=== PATIENT | male | born 1960 | race Caucasian/White ===

== ENCOUNTER 2017-09-24 16:40 | Emergency (ER) | payer BC ==
[~2017-09-24] VITALS: Ht 167.6 cm; Wt 77.7 kg
[~2017-09-24 16:40] MED LIST: BUSP5TAB59 PO; CARB200T PO; CLON0.5T3 PO; GABA800T2 PO; METO25TA3 PO; MIRT45TA PO
[2017-09-24 16:46] VITALS: TEMP 36.6; Ht 167.6 cm; Wt 77.7 kg
[2017-09-24] MEDS ORDERED: LACTATED RINGER'S 1000ML 1,000 ML IV STA (17:11)
[2017-09-24] MEDS ORDERED: METOCLOPRAMIDE HCL INJ 5 MG/ML 2 ML VIAL IV STA (17:19)
--- NOTE | 2017-09-24 17:31 | EMERGENCY ROOM VISIT NOTE ---
History Report prepared by Mariposa: Alejandra Lara Under the Supervision of: Dr. Adriano Mcmahan M.D. First contact with patient: 17:09 Chief Complaint: DIZZY Stated Complaint: DIZZYNESS,TREMBLING, VISUAL PROBLEMS,MAX Nursing Triage Summary: Intermittent dizziness for the past few days. History of Present Illness The patient is a 57 year old male who presents to the Emergency Room with complaints of intermittent dizziness beginning yesterday. The patient states that he has been having lightheadedness and headaches that began yesterday after having one cough suddenly. He reports that he has felt like he was going to have an episode of syncope 2 times since his symptoms began. He notes that this has happened to him before but never this severe. The patient complains of tremors. He denies any fever, chills, cough, nausea, vomiting, abdominal pain, new congestion, diarrhea, urinary symptoms. He reports a history of trigeminal neuralgia. The patient's notes that his pupils were strange this afternoon. He notes that he was shopping last night and ate ramen noodles before he went out and again today. Source of History: patient Onset: yesterday Position: other (global) Quality: other (dizziness) Timing: constant Associated Symptoms: + headache, No fevers, No chills, No nausea, No vomiting, No abdominal pain, No diarrhea, No urinary symptoms Note: The patient complains of tremor. Review of Systems See HPI for pertinent positives and negatives. A total of ten systems were reviewed and were otherwise negative. Past Medical & Surgical Medical Problems: (1) Depression (2) Neuralgia Family History No pertinent family history stated. Social History Smoking Status: Never Smoker Marital Status: Housing Status: lives with family Occupation Status: employed Current/Historical Medications Scheduled Atorvastatin (Lipitor), 20 MG PO DAILY Buspirone Hcl (Buspirone Hcl), 5 MG PO BID Carbamazepine (Tegretol), 400 MG PO UD Cholecalciferol (Vitamin D3), 1 TAB PO WK Clonazepam (Klonopin), 0.5 MG PO HS Gabapentin (Neurontin), 1,600 MG PO UD Gabapentin (Neurontin), 1,200 MG PO QAM Lisinopril (Zestril), 10 MG PO DAILY Metoprolol Succ (Toprol Xl) (Toprol-Xl), 50 MG PO DAILY Mirtazapine (Remeron), 45 MG PO HS Scheduled PRN Dicyclomine Hcl (Dicyclomine Hcl), 1 CAP PO TID PRN for ABD PAIN Fluticasone Propionate (Nasal) (Flonase Allergy Relief), 1 SPRAY CAROLYNN BID PRN for ALLERGIC REACTION Allergies Coded Allergies: No Known Allergies (Verified , 09/24/17) Physical Exam Vital Signs Date Time Temp Pulse Resp B/P (MAP) Pulse Ox O2 Delivery O2 Flow Rate FiO2 09/24/17 22:42 68 18 125/76 98 09/24/17 20:26 65 19 135/82 96 Room Air 09/24/17 18:46 68 18 119/75 95 Room Air 09/24/17 18:07 70 09/24/17 16:46 36.6 74 18 134/81 95 Room Air Physical Exam GENERAL: Awake, alert, well-appearing, in no distress HENT: Normocephalic, atraumatic. Dry mucous membranes. EYES: Normal conjunctiva. Sclera non-icteric. NECK: Supple. No nuchal rigidity. FROM. No JVD. RESPIRATORY: Clear to auscultation. CARDIAC: Regular rate, normal rhythm. Extremities warm and well perfused. Pulses equal. ABDOMEN: Soft, non-distended. No tenderness to palpation. No rebound or guarding. No masses. RECTAL: Deferred. MUSCULOSKELETAL: Chest examination reveals no tenderness. The back is symmetrical on inspection without obvious abnormality. There is no CVA tenderness to palpation. No joint edema. LOWER EXTREMITIES: Calves are equal size bilaterally and non-tender. No edema. No discoloration. NEURO: Normal sensorium. No sensory or motor deficits noted. Normal cerebellar function with [id number], alternating palms, [id number]. SKIN: No rash or jaundice noted. Medical Decision & Procedures ER Provider Diagnostic Interpretation: Radiology results as stated below per my review and radiologist interpretation: HEAD CT NONCONTRAST TECHNIQUE: Multiaxial CT images of the head were performed without the use of intravenous contrast. Automated exposure control was utilized for this study. A dose lowering technique was utilized adhering to the principles of ALARA. Comparison: None. Findings: The paranasal sinuses and mastoid air cells are clear. The calvarium and skull base are intact. The ventricles and sulci are within normal limits. There is no mass, hematoma, midline shift, or acute infarct. Impression: No acute intracranial abnormality. Electronically signed by: Scott Zamora M.D. 09/24/2017 6:46 PM Dictated Date/Time: 09/24/2017 6:39 PM CHEST ONE VIEW PORTABLE FINDINGS: The lungs are clear. Cardiac silhouette is normal in size. No pleural effusions. No pneumothorax. IMPRESSION: No acute process. Electronically signed by: Scott Zmaora M.D. 09/24/2017 5:46 PM Dictated Date/Time: 09/24/2017 5:44 PM Laboratory Results 09/24/17 18:10 Red Blood Count 4.40, Mean Corpuscular Volume 92.3, Mean Corpuscular Hemoglobin 32.3, Mean Corpuscular Hemoglobin Concent 35.0, Mean Platelet Volume 9.0, Neutrophils (%) (Auto) 60.5, Lymphocytes (%) (Auto) 30.6, Monocytes (%) (Auto) 7.1, Eosinophils (%) (Auto) 1.3, Basophils (%) (Auto) 0.3, Neutrophils # (Auto) 3.73, Lymphocytes # (Auto) 1.89, Monocytes # (Auto) 0.44, Eosinophils # (Auto) 0.08, Basophils # (Auto) 0.02 09/24/17 18:10 Test 09/24/17 00:00 09/24/17 18:10 Urine Color YELLOW Urine Appearance CLEAR (CLEAR) Urine pH 5.5 (4.5-7.5) Urine Specific [place] 1.030 (1.000-1.030) Urine Protein NEG (NEG) Urine Glucose (UA) NEG (NEG) Urine Ketones NEG (NEG) Urine Occult Blood NEG (NEG) Urine Nitrite NEG (NEG) Urine Bilirubin NEG (NEG) Urine Urobilinogen NEG (NEG) Urine Leukocyte Esterase NEG (NEG) White Blood Count 6.17 K/uL (4.8-10.8) Red Blood Count 4.40 M/uL (4.7-6.1) Hemoglobin 14.2 g/dL (14.0-18.0) Hematocrit 40.6 % (42-52) Mean Corpuscular Volume 92.3 fL (80-100) Mean Corpuscular Hemoglobin 32.3 pg (25-34) Mean Corpuscular Hemoglobin Concent 35.0 g/dl (32-36) Platelet Count 219 K/uL (130-400) Mean Platelet Volume 9.0 fL (7.4-10.4) Neutrophils (%) (Auto) 60.5 % Lymphocytes (%) (Auto) 30.6 % Monocytes (%) (Auto) 7.1 % Eosinophils (%) (Auto) 1.3 % Basophils (%) (Auto) 0.3 % Neutrophils # (Auto) 3.73 K/uL (1.4-6.5) Lymphocytes # (Auto) 1.89 K/uL (1.2-3.4) Monocytes # (Auto) 0.44 K/uL (0.11-0.59) Eosinophils # (Auto) 0.08 K/uL (0-0.5) Basophils # (Auto) 0.02 K/uL (0-0.2) RDW Standard Deviation 42.3 fL (36.4-46.3) RDW Coefficient of Variation 12.5 % (11.5-14.5) Immature Granulocyte % (Auto) 0.2 % Immature Granulocyte # (Auto) 0.01 K/uL (0.00-0.02) Anion Gap 5.0 mmol/L (3-11) Est Creatinine Clear Calc Drug Dose 101.2 ml/min Estimated GFR () 115.3 Estimated GFR (Non- 99.5 BUN/Creatinine Ratio 15.0 (10-20) Calcium Level 8.5 mg/dl (8.5-10.1) Total Bilirubin 0.1 mg/dl (0.2-1) Direct Bilirubin < 0.1 mg/dl (0-0.2) Aspartate Amino Transf (AST/SGOT) 16 U/L (15-37) Alanine Aminotransferase (ALT/SGPT) 25 U/L (12-78) Alkaline Phosphatase 71 U/L (45-117) Troponin I < 0.015 ng/ml (0-0.045) Total Protein 6.4 gm/dl (6.4-8.2) Albumin 3.6 gm/dl (3.4-5.0) Lipase 260 U/L (73-393) Carbamazepine (Tegretol) Level 17.8 mcg/ml (4-12) Laboratory results reviewed by me Medications Administered Medications (Trade) Dose Ordered Sig/Jorge Luis Route Start Time Stop Time Status Last Admin Dose Admin Lactated Ringer's 1,000 ml @ 999 mls/hr Q1H1M STAT IV 09/24/17 17:11 09/24/17 18:11 DC 09/24/17 18:14 999 MLS/HR ECG Indication: other (dizziness) Rate (beats per minute): 69 Rhythm: normal sinus Findings: no acute ischemic change, other (normal axis) ED Course 1708: The patient was evaluated in room B4B. A complete history and physical exam was performed. 1710: Lactated Ringer's 1000ml @ 999mls/hr IV. 1718: Reglan Inj 10mg IV. 1916: I reevaluated and updated the patient. 1941: I discussed the patient with Dr. Ivanna LUJAN and he will evaluate the patient for further treatment. 1950: Upon reexamination, the patient was doing well. I discussed the test results and treatment plan with him. The patient will be evaluated for further management. Medical Decision I reviewed the patient's past medical history, medications, and the nursing notes as described above. The patient's presentation and history were concerning for tension headache, viral syndrome, gastritis, dehydration, electrolyte abnormalities, ACS, pneumonia, bronchitis. The patient is a 57-year-old gentleman with a past medical history of trigeminal neuralgia on Tegretol and gabapentin as well as a question of an arrhythmia on metoprolol who presents to emergency department with persistent episodes of lightheadedness and near syncope per history of present illness. On arrival the patient is in no acute distress, afebrile with stable vital signs. His initial EKG shows A. fib with rate of 57 otherwise no signs of acute ischemia. Patient was found to have a supratherapeutic Tegretol level to 17.8, which likely is contributing to the patient's symptoms. Labs otherwise, unremarkable including WBC, troponin, and Cr within normal limits. Given the patient's supratherapeutic Tegretol level with prolonged half-life of days in the setting of chronic use as well as question of new A. fib admission is appropriate. Of note patient's CHADSVASC is 0 and thus no indication for AC at this time. Patient and both preferring admission at this time. Case was d/ w TAI Barakat hospitalist, who will admit the patient for further management. Medication Reconcilliation Current Medication List: was personally reviewed by me Blood Pressure Screening Patient's blood pressure: Elevated blood pressure Blood pressure disposition: Did not require urgent referral Consults Time Called: 1937 Consulting Physician: Dr. Ivanna LUJAN Returned Call: 1941 I discussed the patient with Dr. Ivanna LUJAN and he will evaluate the patient for further treatment. Impression Primary Impression: Near syncope Additional Impression: Tegretol toxicity Scribe Attestation The scribe's documentation has been prepared under my direction and personally reviewed by me in its entirety. I confirm that the note above accurately reflects all work, treatment, procedures, and medical decision making performed by me. Departure Information Dispostion Being Evaluated By Hospitalist Referrals Cody Black M.D. (PCP) Patient Instructions My [facility] Problem Qualifiers
--- NOTE | 2017-09-24 17:47 | DIAGNOSTIC IMAGING REPORT ---
CHEST ONE VIEW PORTABLE HISTORY: Generalized abdominal pain. COMPARISON: Chest 06/04/2008. FINDINGS: The lungs are clear. Cardiac silhouette is normal in size. No pleural effusions. No pneumothorax. IMPRESSION: No acute process. Electronically signed by: Scott Zamora M.D. 09/24/2017 5:46 PM Dictated Date/Time: 09/24/2017 5:44 PM
[2017-09-24 18:19] LABS: BASO % 0.3 %; BASO ABS # 0.02 K/uL (0-0.2); COMPLETE YES; EOS % 1.3 %; HEMATOCRIT 40.6 % (42-52); IG% 0.2 %; LYMPH % 30.6 %; LYMPH ABS # 1.89 K/uL (1.2-3.4); MEAN CELL VOLUME 92.3 fL (80-100); MEAN CORPUSCULAR HEMOGLOBIN 32.3 pg (25-34); MONO % 7.1 %; NEUT % 60.5 %; PLATELET COUNT 219 K/uL (130-400); WHITE BLOOD COUNT 6.17 K/uL (4.8-10.8)
[2017-09-24 18:23] LABS: URINE APPEARANCE CLEAR (CLEAR); URINE BILIRUBIN NEG (NEG); URINE COLOR YELLOW; URINE NITRITE NEG (NEG); URINE PH 5.5 (4.5-7.5); UROBILINOGEN NEG (NEG); ZZUR CULT IF INDIC CLEAN CATCH NO
[2017-09-24 18:24] LABS: MANUAL MICROSCOPIC REQUIRED? NO; REVIEW REQ? NO
[2017-09-24 18:42] LABS: ALT/SGPT 25 U/L (12-78); BLOOD UREA NITROGEN 12 mg/dl (7-18); CALCIUM 8.5 mg/dl (8.5-10.1); CARBON DIOXIDE 30 mmol/L (21-32); CHLORIDE 99 mmol/L (98-107); CREATININE 0.78 mg/dl (0.60-1.40); GLUCOSE 113 mg/dl (70-99); POTASSIUM 3.8 mmol/L (3.5-5.1); SODIUM 134 mmol/L (136-145)
[2017-09-24 18:47] LABS: ALKALINE PHOSPHATASE 71 U/L (45-117); AST/SGOT 16 U/L (15-37)
--- NOTE | 2017-09-24 18:47 | DIAGNOSTIC IMAGING REPORT ---
HEAD CT NONCONTRAST CT DOSE: 537.48 mGy.cm HISTORY: Headache, dizziness TECHNIQUE: Multiaxial CT images of the head were performed without the use of intravenous contrast. Automated exposure control was utilized for this study. A dose lowering technique was utilized adhering to the principles of ALARA. Comparison: None. Findings: The paranasal sinuses and mastoid air cells are clear. The calvarium and skull base are intact. The ventricles and sulci are within normal limits. There is no mass, hematoma, midline shift, or acute infarct. Impression: No acute intracranial abnormality. Electronically signed by: Scott Zamora M.D. 09/24/2017 6:46 PM Dictated Date/Time: 09/24/2017 6:39 PM
[2017-09-24] MEDS ORDERED: LISI-461 PO (20:00)
[2017-09-24] MEDS ORDERED: GABA1CAP5 PO (20:00)
[2017-09-24] MEDS ORDERED: CHOL20007 PO (20:00)
[2017-09-24] MEDS ORDERED: ATOR-22 PO (20:00)
[2017-09-24] MEDS ORDERED: METO50TA7 PO (20:00)
[2017-09-24] MEDS ORDERED: FLUT0.15 NAE (20:00)
[2017-09-24] MEDS ORDERED: DICY10CA12 PO (20:00)
[2017-09-24] MEDS ORDERED: NON-FORMULARY MEDICATION (Cholecalciferol (Vitamin D3) 1 TAB) PO SCH (21:15)
[2017-09-24] MEDS ORDERED: DICYCLOMINE HCL 10 MG CAP PO PRN (21:15)
[2017-09-24] MEDS ORDERED: FLUTICASONE PROPIONATE NA SPR 16 GM BTL NAE PRN (21:15)
--- NOTE | 2017-09-24 21:31 | Medical Consult ---
Consultation Date of Consultation: Sep 24, 2017. Attending Physician: History of Present Illness 57 y/o M Hx depression, anxiety, trigeminal neuralgias, possible paroxysmal AF. Pt states he has felt generally dizzy over the past 2 days and had 2 near syncopal episodes as well. He did not lose consciousness. These episodes occurred while he was eating and again when sitting on his couch. He denies any CP, SOB or discernible palpitations. He denies Nausea, vomiting, dysuria, fevers or generalized weakness. Initial labs are notable for an elevated Tegretol level although not within the critically toxic range. He exhibits a normal sinus rhythm and a normal EKG at the time of evaluation. 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 Smoking Status: Never Smoker Marital Status: Housing Status: lives with family Occupation Status: employed Allergies Coded Allergies: No Known Allergies (Verified , 09/24/17) Review of Systems Constitutional: No fever, No chills, No sweats ENT: No hearing loss, No unusual epistaxis, No nasal symptoms Respiratory: No cough, No sputum, No wheezing Cardiovascular: No chest pain, No orthopnea, No PND Abdomen: No pain, No nausea, No vomiting Musculoskeletal: No joint pain Genitourinary - Male: No hematuria, No dysuria, No urinary frequency, No urinary urgency Neurologic: + problem reported (dizzy spells as above), No memory loss, No paralysis, No weakness Psychiatric: No depression symptoms Endocrine: No fatigue Hematologic / Lymphatic: No abnormal bleeding/bruising Integumentary: No rash Allergic / Immunologic: No environmental allergies Physical Exam Date Time Temp Pulse Resp B/P (MAP) Pulse Ox O2 Delivery O2 Flow Rate FiO2 09/24/17 20:26 65 19 135/82 96 Room Air 09/24/17 18:46 68 18 119/75 95 Room Air 09/24/17 18:07 70 09/24/17 16:46 36.6 74 18 134/81 95 Room Air General Appearance: WD/WN, no apparent distress, + pertinent finding (Plesant middle-aged male in no distress) Head: normocephalic Eyes: normal inspection ENT: normal ENT inspection, hearing grossly normal, TMs normal, pharynx normal Neck: supple, no JVD Respiratory/Chest: chest non-tender, lungs clear, normal breath sounds, no respiratory distress, no accessory muscle use Cardiovascular: regular rate, rhythm, no edema, no gallop, no JVD, no murmur, normal peripheral pulses Abdomen/GI: normal bowel sounds, non tender, soft Back: normal inspection, no CVA tenderness, no muscle spasm, normal range of motion Extremities/Musculoskelatal: normal inspection, no calf tenderness, normal capillary refill, no pedal edema, normal range of motion Neurologic/Psych: bagman/woman II-XII nml as tested, no motor/sensory deficits, alert, normal mood/affect, normal reflexes, oriented x 3 Skin: normal color, warm/dry, no rash Laboratory Results Last 24 Hours Test 09/24/17 00:00 09/24/17 18:10 Urine Color YELLOW Urine Appearance CLEAR Urine pH 5.5 Urine Specific [place] 1.030 Urine Protein NEG Urine Glucose (UA) NEG Urine Ketones NEG Urine Occult Blood NEG Urine Nitrite NEG Urine Bilirubin NEG Urine Urobilinogen NEG Urine Leukocyte Esterase NEG White Blood Count 6.17 K/uL Red Blood Count 4.40 M/uL Hemoglobin 14.2 g/dL Hematocrit 40.6 % Mean Corpuscular Volume 92.3 fL Mean Corpuscular Hemoglobin 32.3 pg Mean Corpuscular Hemoglobin Concent 35.0 g/dl Platelet Count 219 K/uL Mean Platelet Volume 9.0 fL Neutrophils (%) (Auto) 60.5 % Lymphocytes (%) (Auto) 30.6 % Monocytes (%) (Auto) 7.1 % Eosinophils (%) (Auto) 1.3 % Basophils (%) (Auto) 0.3 % Neutrophils # (Auto) 3.73 K/uL Lymphocytes # (Auto) 1.89 K/uL Monocytes # (Auto) 0.44 K/uL Eosinophils # (Auto) 0.08 K/uL Basophils # (Auto) 0.02 K/uL RDW Standard Deviation 42.3 fL RDW Coefficient of Variation 12.5 % Immature Granulocyte % (Auto) 0.2 % Immature Granulocyte # (Auto) 0.01 K/uL Sodium Level 134 mmol/L Potassium Level 3.8 mmol/L Chloride Level 99 mmol/L Carbon Dioxide Level 30 mmol/L Anion Gap 5.0 mmol/L Blood Urea Nitrogen 12 mg/dl Creatinine 0.78 mg/dl Est Creatinine Clear Calc Drug Dose 101.2 ml/min Estimated GFR () 115.3 Estimated GFR (Non- 99.5 BUN/Creatinine Ratio 15.0 Random Glucose 113 mg/dl Calcium Level 8.5 mg/dl Total Bilirubin 0.1 mg/dl Direct Bilirubin < 0.1 mg/dl Aspartate Amino Transf (AST/SGOT) 16 U/L Alanine Aminotransferase (ALT/SGPT) 25 U/L Alkaline Phosphatase 71 U/L Troponin I < 0.015 ng/ml Total Protein 6.4 gm/dl Albumin 3.6 gm/dl Lipase 260 U/L Carbamazepine (Tegretol) Level 17.8 mcg/ml Assessment & Plan 57 y/o M Hx depression, anxiety, trigeminal neuralgias, possible paroxysmal AF. Pt states he has felt generally dizzy over the past 2 days and had 2 near syncopal episodes as well. He did not lose consciousness. These episodes occurred while he was eating and again when sitting on his couch. He denies any CP, SOB or discernible palpitations. He denies Nausea, vomiting, dysuria, fevers or generalized weakness. Initial labs are notable for an elevated Tegretol level although not within the critically toxic range. He exhibits a normal sinus rhythm and a normal EKG at the time of evaluation. The pt was evaluated extensively in the ER. He is feeling fairly well after a litre of fluids and was able to circumambulate the ER independently without developing dizziness. A CT head, EKG and additional labs are all within normal limits. He does not wish to remain in the hospital at present. He reports that he lives with his and will be returning home under her supervision if discharged. We have advised based on the half-life of Tegretol that he resume a lower dose Wednesday and discuss a final dose with his primary MD Wednesday. He is to continue the remainder of his medications as prescribed although with persistence or recurrence of symptoms, he may have to discuss dosages of Remeron and Gil with his MD. The pt has been carefully advised on the above and told to return to the ER with additional episodes, worsening dizziness, palpitations or new unexplained symptoms. A discharge will be completed by the medical team.
[2017-09-24 22:42] VITALS: BP 125/76; PULSE 68; O2SAT 98
[2017-09-25] MEDS ORDERED: METOPROLOL SUCC 50MG EXT REL TAB PO SCH (09:00)
[2017-09-25] MEDS ORDERED: LISINOPRIL 10 MG TAB PO SCH (09:00)
[2017-09-25] MEDS ORDERED: ATORVASTATIN 20 MG TAB PO SCH (09:00)
[2017-09-25] MEDS ORDERED: GABAPENTIN 400 MG CAP PO SCH (09:00)
[2017-09-25] MEDS ORDERED: GABAPENTIN 800 MG TAB PO SCH (21:00)
[2017-09-25] MEDS ORDERED: CLONAZEPAM 0.5 MG TAB PO SCH (21:00)
[2017-09-25] MEDS ORDERED: NON-FORMULARY MEDICATION (Mirtazapine (Remeron) 30 MG) PO SCH (21:00)
== END 2017-09-24 22:44 | disposition home or self-care (01) ==
LOC: C.EDB 16:42
DX: R55 Syncope and collapse (principal); T42.1X1A Poisoning by iminostilbenes, accidental (unintentional), initial encounter; F32.9 Major depressive disorder, single episode, unspecified; G50.0 Trigeminal neuralgia; Z79.899 Other long term (current) drug therapy

== ENCOUNTER 2018-02-18 08:34 | Emergency (ER) | payer BC, OTHER ==
[~2018-02-18] VITALS: Ht 172.7 cm; Wt 77.0 kg
[~2018-02-18 08:34] MED LIST changes: +ATOR-22 PO; +CHOL20007 PO; +DICY10CA12 PO; +FLUT0.15 NAE; +GABA-1220 PO; +LISI-461 PO; -METO25TA3 PO; +METO50TA8 PO
[2018-02-18 08:43] VITALS: TEMP 36.8; Ht 172.7 cm; Wt 77.0 kg
[2018-02-18 08:52] LABS: BASO % 0.2 %; BASO ABS # 0.02 K/uL (0-0.2); EOS % 1.7 %; EOS ABS # 0.17 K/uL (0-0.5); HEMATOCRIT 41.8 % (42-52); HEMOGLOBIN 14.4 g/dL (14.0-18.0); IG# 0.03 K/uL (0.00-0.02); LYMPH % 20.6 %; MEAN CELL VOLUME 90.5 fL (80-100); MEAN CORPUSCULAR HEMOGLOBIN 31.2 pg (25-34); MEAN CORPUSCULAR HGB CONC 34.4 g/dl (32-36); MEAN PLATELET VOLUME 8.8 fL (7.4-10.4); MONO ABS # 0.97 K/uL (0.11-0.59); NEUT % 67.2 %; NEUT ABS # 6.54 K/uL (1.4-6.5); PLATELET COUNT 231 K/uL (130-400); RED CELL DISTRIBUTION WIDTH CV 12.4 % (11.5-14.5); RED CELL DISTRIBUTION WIDTH SD 41.2 fL (36.4-46.3); WHITE BLOOD COUNT 9.73 K/uL (4.8-10.8)
[2018-02-18 09:02] VITALS: O2SAT 96
[2018-02-18 09:05] LABS: INR 0.9 (0.9-1.1)
[2018-02-18 09:06] LABS: ALBUMIN 3.3 gm/dl (3.4-5.0); BLOOD UREA NITROGEN 10 mg/dl (7-18); CALCIUM 8.6 mg/dl (8.5-10.1); CARBON DIOXIDE 28 mmol/L (21-32); GLUCOSE 99 mg/dl (70-99); LIPASE 194 U/L (73-393); SODIUM 138 mmol/L (136-145)
[2018-02-18] MEDS ORDERED: GABA800T PO (09:07)
[2018-02-18] MEDS ORDERED: BUSP30TA2 PO (09:07)
[2018-02-18] MEDS ORDERED: PROB1TAB16 PO (09:07)
[2018-02-18] MEDS ORDERED: CARB200T3 PO (09:07)
--- NOTE | 2018-02-18 09:08 | DIAGNOSTIC IMAGING REPORT ---
CHEST ONE VIEW PORTABLE HISTORY: Atypical CHEST PAIN COMPARISON: Chest 09/24/2017. FINDINGS: The lungs are clear. Cardiac silhouette is normal in size. No pleural effusions. No pneumothorax. IMPRESSION: No acute process. Electronically signed by: Scott Zamora M.D. 02/18/2018 9:07 AM Dictated Date/Time: 02/18/2018 9:04 AM
[2018-02-18 09:11] LABS: ALKALINE PHOSPHATASE 75 U/L (45-117); ALT/SGPT 25 U/L (12-78); AST/SGOT 13 U/L (15-37); TOTAL PROTEIN 6.6 gm/dl (6.4-8.2)
--- NOTE | 2018-02-18 10:13 | EMERGENCY ROOM VISIT NOTE ---
History Report prepared by Mariposa: Augusto Naranjo Under the Supervision of: Dr. Olegario Cornelius M.D. First contact with patient: 08:36 Stated Complaint: CHEST PAIN History of Present Illness The patient is a 57 year old male who presents to the Emergency Room with complaints of now-resolved chest pain that began at 0800, 45 minutes ago. The patient states that his pain was localized to his left chest and did not radiate. The patient describes the pain as a "grabbing" sensation and notes that it was worsened with walking. He estimates that the pain lasted for about 3 minutes before spontaneously resolving. There is no active chest pain. He denies any associated shortness of breath or diaphoresis. The patient's arrived at bedside and noted that he was sick this past week and had a fever of 103.6 on Wednesday, 3 days ago. He also had diarrhea at this time. The patient had an unremarkable halter monitor study in December of 2016. Source of History: patient, spouse/significant other Onset: 45 mintues ago Position: chest (left) Quality: other ("Grabbing") Timing: resolved Modifying Factors (Worsening): other (walking ) Associated Symptoms: No diaphoresis, No SOB Review of Systems See HPI for pertinent positives and negatives. A total of ten systems were reviewed and were otherwise negative. Past Medical & Surgical Medical Problems: (1) Depression (2) Neuralgia Family History Cancer Hypertension Social History Smoking Status: Never Smoker Marital Status: Housing Status: lives with family Occupation Status: employed Current/Historical Medications Scheduled Buspirone Hcl (Buspirone Hcl), 30 MG PO BID Carbamazepine (Tegretol), 400 MG PO BID Carbamazepine (Tegretol), 300 MG PO HS Gabapentin (Neurontin), 1,600 MG PO BID Gabapentin (Neurontin), 1,200 MG PO QAM Lisinopril (Zestril), 10 MG PO DAILY Metoprolol Succ (Toprol Xl) (Toprol-Xl), 50 MG PO DAILY Probiotic Product (Probiotic), 1 TAB PO DAILY Scheduled PRN Clonazepam (Klonopin), 0.5 MG PO HS PRN for Sleep Dicyclomine Hcl (Dicyclomine Hcl), 1 CAP PO TID PRN for ABD PAIN Fluticasone Propionate (Nasal) (Flonase Allergy Relief), 1 SPRAY CAROLYNN BID PRN for ALLERGIC REACTION Allergies Coded Allergies: No Known Allergies (Verified , 09/24/17) Physical Exam Vital Signs Date Time Temp Pulse Resp B/P (MAP) Pulse Ox O2 Delivery O2 Flow Rate FiO2 02/18/18 12:21 72 02/18/18 12:02 79 130/80 95 Room Air 02/18/18 10:33 67 16 119/79 02/18/18 09:20 75 16 111/76 02/18/18 09:02 96 Room Air 02/18/18 08:43 36.8 71 16 134/90 96 Room Air 02/18/18 08:41 72 Physical Exam GENERAL: Awake, alert, well-appearing, NAD HENT: Normocephalic, atraumatic. EYES: Normal conjunctiva. Sclera non-icteric. NECK: Supple. No nuchal rigidity. FROM. RESPIRATORY: CTAB, no rhonchi, wheezing, crackles CARDIAC: RRR, no MRG ABDOMEN: Soft, NTND, BS+ MSK: No chest wall TTP, no LE edema NEURO: GCS 15, CN 2-12 intact, moves all 4s on command SKIN: No rash or jaundice noted. Medical Decision & Procedures ER Provider Diagnostic Interpretation: Radiology results as stated below per my review and radiologist interpretation: CHEST ONE VIEW PORTABLE HISTORY: Atypical CHEST PAIN COMPARISON: Chest 09/24/2017. FINDINGS: The lungs are clear. Cardiac silhouette is normal in size. No pleural effusions. No pneumothorax. IMPRESSION: No acute process. Electronically signed by: Scott Zamora M.D. 02/18/2018 9:07 AM Dictated Date/Time: 02/18/2018 9:04 AM Laboratory Results 02/18/18 08:40 Red Blood Count 4.62, Mean Corpuscular Volume 90.5, Mean Corpuscular Hemoglobin 31.2, Mean Corpuscular Hemoglobin Concent 34.4, Mean Platelet Volume 8.8, Neutrophils (%) (Auto) 67.2, Lymphocytes (%) (Auto) 20.6, Monocytes (%) (Auto) 10.0, Eosinophils (%) (Auto) 1.7, Basophils (%) (Auto) 0.2, Neutrophils # (Auto ) 6.54, Lymphocytes # (Auto) 2.00, Monocytes # (Auto) 0.97, Eosinophils # (Auto ) 0.17, Basophils # (Auto) 0.02 02/18/18 08:40 Test 02/18/18 08:40 02/18/18 12:10 White Blood Count 9.73 K/uL (4.8-10.8) Red Blood Count 4.62 M/uL (4.7-6.1) Hemoglobin 14.4 g/dL (14.0-18.0) Hematocrit 41.8 % (42-52) Mean Corpuscular Volume 90.5 fL (80-100) Mean Corpuscular Hemoglobin 31.2 pg (25-34) Mean Corpuscular Hemoglobin Concent 34.4 g/dl (32-36) Platelet Count 231 K/uL (130-400) Mean Platelet Volume 8.8 fL (7.4-10.4) Neutrophils (%) (Auto) 67.2 % Lymphocytes (%) (Auto) 20.6 % Monocytes (%) (Auto) 10.0 % Eosinophils (%) (Auto) 1.7 % Basophils (%) (Auto) 0.2 % Neutrophils # (Auto) 6.54 K/uL (1.4-6.5) Lymphocytes # (Auto) 2.00 K/uL (1.2-3.4) Monocytes # (Auto) 0.97 K/uL (0.11-0.59) Eosinophils # (Auto) 0.17 K/uL (0-0.5) Basophils # (Auto) 0.02 K/uL (0-0.2) RDW Standard Deviation 41.2 fL (36.4-46.3) RDW Coefficient of Variation 12.4 % (11.5-14.5) Immature Granulocyte % (Auto) 0.3 % Immature Granulocyte # (Auto) 0.03 K/uL (0.00-0.02) Prothrombin Time 9.8 SECONDS (9.0-12.0) Prothromb Time International Ratio 0.9 (0.9-1.1) Activated Partial Thromboplast Time 25.0 SECONDS (21.0-31.0) Partial Thromboplastin Ratio 1.0 Anion Gap 5.0 mmol/L (3-11) Est Creatinine Clear Calc Drug Dose 97.3 ml/min Estimated GFR () 114.1 Estimated GFR (Non- 98.5 BUN/Creatinine Ratio 11.8 (10-20) Calcium Level 8.6 mg/dl (8.5-10.1) Magnesium Level 2.2 mg/dl (1.8-2.4) Total Bilirubin 0.3 mg/dl (0.2-1) Direct Bilirubin < 0.1 mg/dl (0-0.2) Aspartate Amino Transf (AST/SGOT) 13 U/L (15-37) Alanine Aminotransferase (ALT/SGPT) 25 U/L (12-78) Alkaline Phosphatase 75 U/L (45-117) Pro-B-Type Natriuretic Peptide 90 pg/ml (0-900) Total Protein 6.6 gm/dl (6.4-8.2) Albumin 3.3 gm/dl (3.4-5.0) Lipase 194 U/L (73-393) Troponin I < 0.015 ng/ml (0-0.045) Laboratory results reviewed by me ECG Per My Interpretation Indication: chest pain Rate (beats per minute): 72 Rhythm: normal sinus Findings: other (Normal intervals/normal axis, no STS or TWI) ED Course 0841: The patient was evaluated in room A9B. A complete history and physical exam was performed. 0934: I updated the patient at this time. He has not had any recurrence of his pain. We will perform an ambulatory trial and repeat the troponin at 1200. 1222: I checked on the patient he is doing well. 1311: I reevaluated the patient. Discussed results and discharge instructions: He verbalized understanding and agreement. The patient is ready for discharge. Medical Decision Differential diagnosis: Etiologies such as cardiac ischemia, aortic dissection, pulmonary embolism, pneumonia, pneumothorax, musculoskeletal, infections, pericarditis, myocarditis , esophageal rupture, gastrointestinal, as well as others were entertained. Patient was seen and evaluated at the bedside. Patient was complaining of some chest pain. Patient states it started suddenly while he was walking about. 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 Patient denies any nausea, vomiting, diaphoresis. Patient denies any prior history of DVT or PE. Patient does not take aspirin or blood thinning medication. Patient did have blood work completed, EKG, troponin, chest x-ray. Patient's chest x-ray is unremarkable. EKG does not show any ischemic changes or arrhythmia. Troponin is negative. The patient does have a heart score of 3. Less likely ACS. However, the patient may have had some exertional chest pain. The patient was ambulated to try and see if he had any reproducible exertional chest discomfort. The patient also did have a repeat troponin that was ordered 4 hours after symptom onset. Patient's repeat troponin was negative. Patient did have a walk test which was also negative. Given that the patient does not have any reproducible exertional symptoms and has a negative troponin 2 believe he is suitable for outpatient follow-up and treatment at this time. Patient was given strict follow-up, discharge, and return precautions. All questions were answered. Patient was deemed suitable for outpatient follow-up at this time. Patient agreed with the plan of care and was safely discharged home. Medication Reconcilliation Current Medication List: was personally reviewed by me Blood Pressure Screening Patient's blood pressure: Normal blood pressure Impression Primary Impression: Left sided chest pain Scribe Attestation The scribe's documentation has been prepared under my direction and personally reviewed by me in its entirety. I confirm that the note above accurately reflects all work, treatment, procedures, and medical decision making performed by me. Departure Information Dispostion Home / Self-Care Referrals Cody Black M.D. (PCP) Patient Instructions Chest Pain - [facility], [facility] Additional Instructions Please return to the emergency department if you have worsening or recurrent symptoms not amenable to at-home treatment. Please call for a follow-up appointment with her primary care physician. Please take your medications as prescribed. If you have other concerns and/or complaints please feel free to also call your primary care physician's office or return the ED for further evaluation, management, and treatment. You may take 800 mg Ibuprofen every 6 hours as needed for pain/fever with food unless told by your physician not to take NSAIDs. You may take tylenol 1000 mg every 6 hours as needed for pain/fever unless told by your physician to not take it or have liver problems. You may take motrin and tylenol separately or at the same time. Take your medications as prescribed. You have been examined and treated today on an emergency basis only. This is not a substitute for, or an effort to provide, complete comprehensive medical care. It is impossible to recognize and treat all injuries or illnesses in a single emergency department visit. It is therefore important that you follow up closely with [facility], your PCP, and/or your specialist(s). Call as soon as possible for an appointment. Thank you for your time and consideration. I look forward to speaking with you again soon. Please don't hesitate to call us if you have any questions.
[2018-02-18 13:28] VITALS: BP 122/76; PULSE 73; O2SAT 95
== END 2018-02-18 13:30 | disposition home or self-care (01) ==
LOC: EDBD 08:34 → C.EDA 08:36
DX: R07.9 Chest pain, unspecified (principal); F32.9 Major depressive disorder, single episode, unspecified; M79.2 Neuralgia and neuritis, unspecified; Z80.9 Family history of malignant neoplasm, unspecified; Z82.49 Family history of ischemic heart disease and other diseases of the circulatory system; Z79.899 Other long term (current) drug therapy

== ENCOUNTER → 2018-02-19 | Outpatient (CLI) | payer OTHER ==
[~2018-02-19] MED LIST changes: -ATOR-22 PO; +BUSP30TA2 PO; -BUSP5TAB59 PO; +CARB200T3 PO; -CHOL20007 PO; -GABA-1220 PO; +GABA800T PO; -MIRT45TA PO; +PROB1TAB16 PO
== END | disposition home or self-care (01) ==
LOC: C.LAB 10:05
PROVIDERS: ATTEND Nurse Practitioner
DX: R19.7 Diarrhea, unspecified (principal)

== ENCOUNTER → 2018-03-08 | Outpatient (CLI) | payer OTHER | END | disposition home or self-care (01) | LOC: C.LABPVFM 09:52 | PROVIDERS: ATTEND Nurse Practitioner | DX: B96.89 Other specified bacterial agents as the cause of diseases classified elsewhere (principal) ==

== ENCOUNTER → 2018-03-18 | Outpatient (CLI) | payer OTHER ==
[~2018-03-18] MED LIST changes: +OPTIRAY 320 IV PRN
--- NOTE | 2018-03-18 14:42 | DIAGNOSTIC IMAGING REPORT ---
ABDOMEN AND PELVIS CT WITH IV AND ORAL CONTRAST CT DOSE: 329.64 mGy.cm HISTORY: Acute diarrhea R19.7 DIARRHEA TECHNIQUE: Multiaxial CT images of the abdomen and pelvis were performed following the use of intravenous and oral contrast. A dose lowering technique was utilized adhering to the principles of ALARA. COMPARISON STUDY: None. FINDINGS: Fissural lymph nodes are seen adjacent to the left lower lobe. Calcified granuloma of the posterior basal left lower lobe, subcentimeter. Linear subsegmental atelectasis or scarring of the lateral basal segment right lower lobe. There is no pneumatosis or pneumoperitoneum identified. The imaged inferior cardiac chambers are unremarkable. Gallbladder, liver, spleen, pancreas and adrenal glands are within normal limits. There are several nonobstructing bilateral renal calculi measuring up to 4 mm. No ureteral calculi or obstructive uropathy. Urinary bladder is partially decompressed. Small fat filled left inguinal hernia. Prior right inguinal hernia repair. No aortic aneurysm or pathologic adenopathy. IVC is unremarkable. There is no small bowel obstruction. There is mild wall thickening noted within a small bowel loop of the central abdomen which is mildly prominent measuring up to 2.6 cm transversely on image 283 series 3 without evidence of associated inflammatory stranding. Soft tissues are unremarkable. Bones appear intact. Areas of under distention are noted within the sigmoid colon and also within segments of the transverse and descending colon. No significant colonic wall thickening or pericolonic inflammatory stranding. The terminal ileum is within normal limits. The appendix is not definitively seen. No secondary signs of acute appendicitis. No ascites or mesenteric inflammatory changes. IMPRESSION: 1. Mildly prominent nondilated loop of small bowel within the central abdomen and straight apparent wall thickening, possibly reflecting a focal transient intussusception without evidence of small bowel obstruction or associated inflammatory stranding. Focal enteritis is thought to be less likely. 2. Appendix not visualized. No secondary signs to suggest acute appendicitis. 3. Bilateral nonobstructing nephrolithiasis. 4. No definitive evidence of colitis. Electronically signed by: Benjamin Smith M.D. 03/18/2018 2:41 PM Dictated Date/Time: 03/18/2018 2:28 PM
== END | disposition home or self-care (01) ==
LOC: C.CTS 12:05
PROVIDERS: ATTEND Nurse Practitioner
DX: R19.7 Diarrhea, unspecified (principal)

== ENCOUNTER 2019-09-22 19:01 | Observation (INO) ==
[2019-09-22 19:52] LABS: Basophils # (auto) 0.03 K/uL (0-0.2); Basophils % (auto) 0.4 %; Eosinophils # (auto) 0.15 K/uL (0-0.5); Eosinophils % (auto) 2.2 %; Hematocrit (blood only) 39.4 % (42-52); Hemoglobin 14.1 g/dL (14.0-18.0); Immature Granulocytes # (auto) 0.01 K/uL (0.00-0.02); Immature Granulocytes % (auto) 0.1 %; Lymphocytes # (auto) 2.51 K/uL (1.2-3.4); Lymphocytes % (auto) 36.6 %; Mean Corpuscular Hemoglobin 31.5 pg (25-34); Mean Corpuscular Hgb Conc 35.8 g/dL (32-36); Mean Corpuscular Volume 88.1 fL (80-100); Mean Platelet Volume 8.7 fL (7.4-10.4); Monocytes # (auto) 0.68 K/uL (0.11-0.59); Monocytes % (auto) 9.9 %; Neutrophils # (auto) 3.47 K/uL (1.4-6.5); Neutrophils % (auto) 50.8 %; Platelet Count 224 K/uL (130-400); RDW Coefficient of Variation 12.4 % (11.5-14.5); RDW Standard Deviation 39.9 fL (36.4-46.3); Red Blood Count 4.47 M/uL (4.7-6.1); White Blood Count 6.85 K/uL (4.8-10.8)
--- NOTE | 2019-09-22 19:58 | CT Scan Report ---
CT SCAN OF THE BRAIN WITHOUT IV CONTRAST CLINICAL HISTORY: Dizziness. COMPARISON STUDY: CT of the brain dated 01/09/2019. TECHNIQUE: Unenhanced axial CT scan of the brain is performed from the vertex to the skull base. A d ose lowering technique was utilized adhering to the principles of ALARA. CT DOSE: 537.48 mGy.cm FINDINGS: Brain parenchyma: The brain parenchyma is normal in appearance. There is no hemorrhage, mass effect, or evidence of acute territorial ischemia by CT criteria. Bowman-white matter differentiation is preser dara. No extra-axial fluid collection is seen. Ventricles, sulci, cisterns: Normal in configuration. Intracranial vasculature: The visualized intracranial vasculature at the skull base is normal in appe arance. Calvarium: Unremarkable. Sinuses and mastoids: The visualized paranasal sinuses are clear. The mastoid air cells are well pneu matized. Orbits: The bony orbits are grossly intact. IMPRESSION: There is no hemorrhage, mass effect, or evidence of acute territorial ischemia by CT [place]. Electronically signed by: Virgil Garza M.D. 09/22/2019 7:57 PM
[2019-09-22 19:59] LABS: Alanine Aminotransferase 18 U/L (12-78); Albumin Level 3.8 gm/dl (3.4-5.0); Aspartate Aminotransferase 13 U/L (15-37); Blood Urea Nitrogen 8 mg/dl (7-18); Calcium 8.9 mg/dl (8.5-10.1); Carbon Dioxide 28 mmol/L (21-32); Chloride 96 mmol/L (98-107); Creatinine Clr Calc Pharmacy 102.7 ml/min; Est GFR (African American) 116.2; Est GFR (Non-African American) 100.3; Glucose 99 mg/dl (70-99); Sodium 130 mmol/L (136-145)
[2019-09-22 20:03] LABS: Albumin Globulin Ratio 1.3 (0.9-2); Alkaline Phosphatase 76 U/L (45-117); Bilirubin,Total 0.2 mg/dl (0.2-1); Total Protein 6.8 gm/dl (6.4-8.2); Troponin I < 0.015 ng/ml (0-0.045)
--- NOTE | 2019-09-22 20:13 | XRay Report ---
TWO VIEW CHEST CLINICAL HISTORY: Dizziness. FINDINGS: PA and lateral chest radiographs are compared to study dated 01/09/2019. The cardiomediastin al silhouette is unremarkable. The lungs and pleural spaces are clear. There is no pneumothorax. The bony thorax appears intact. IMPRESSION: No active disease in the chest. Electronically signed by: Virgil Garza M.D. 09/22/2019 8:12 PM
[2019-09-22 20:25] LABS: Appearance Urine Clear (Clear); Bilirubin Urine Negative (Negative); Blood Urine Negative (Negative); Color Urine Yellow; Glucose Urine UA Negative (Negative); Ketones Urine Negative (Negative); Leukocyte Esterase Urine Negative (Negative); Nitrite Urine Negative (Negative); Protein Urine Negative (Negative); Specific Gravity Urine 1.016 (1.000-1.030); Urobilinogen Urine Negative (Negative); pH Urine 7.5 (4.5-7.5)
[2019-09-22] MEDS ORDERED: LORazepam 1 MG/2 ML VIAL IV PRN (21:29)
--- NOTE | 2019-09-22 21:29 | History & Physical Report ---
Date of Service September 22, 2019 Assessment & Plan (1) Carbamazepine toxicity: Luiz is a 59-year-old male with a past medical history of trigeminal neuralgia, hypertension, irritable bowel syndrome, depression, and memory difficulty who presents to the emergency department on recommendation from poison control after he developed lightheadedness, numbness, stumbling, and blurry vision after taking an extra dose of his gabapentin and carbamazepine accidentally. Carbamazepine/gabapentin overdose, anticholinergic toxicity Patient with lightheadedness, paresthesias, decreased balance, and blurry vision slowly improving Carbamazepine level on admission 21 Took 1 extra dose of his carbamazepine 400 mg and gabapentin 1600 mg at 3:30 PM Hold carbamazepine until levels decrease, hold gabapentin evening dose and restart in the morning Carbamazepine level tomorrow morning Seizure precautions. No personal or family history of seizures. Ativan 1 mg as needed IV for seizure. Admit to telemetry, no acute changes on EKG. Normal QRS, normal QT interval -Denies SI, overdose appears accidental Chest pain Patient admits to intermittent chest pain when walking back from the bathroom over the last few months without radiation to his jaw or shoulder, and without associated shortness of breath or diaphoresis Episodes pass after about 15 minutes EKG shows no ST changes, no Q waves. Troponin negative on admission. Patient would benefit from stress testing/further evaluation as outpatient. No clinical signs of ACS at this time Hyponatremia Suspect secondary to SIADH of medication regimen Fluid restrict to 2 L, BMP daily Mental status difficult to evaluate in context of carbamazepine overdose. Continue to follow Depression with anxiety Continue BuSpar, continue mirtazapine nightly Hypertension/CAD Continue metoprolol succinate 50 mg daily Continue lisinopril 10 mg daily Continue atorvastatin 40 mg every afternoon DVT prophylaxis: SCDs Diet: Heart healthy, fluid restrict as above CODE STATUS: Full code, confirmed with patient Disposition: Admit to telemetry for observation (2) Accidental overdose: (3) Cervicalgia: (4) Chest pain: (5) Chronic diarrhea of unknown origin: (6) Incomplete emptying of bladder: (7) Depression with anxiety: History of Present Illness Chief Complaint: Accidental carbamazepine overdose Primary Care Provider: MIGUEL ANGEL Pfeiffer Yulisa is a 5-year-old male with a past medical history of trigeminal neuralgia, hypertension, irritable bowel syndrome, depression with anxiety, and hyperlipidemia who presented to the emergency department on the recommendation of poison control after he accidentally took an extra dose of his carbamazepine and gabapentin. Patient reports that he took an extra dose of his medications because he could not remember if he took his early afternoon dose. He does not use a pillbox, his reports that they are buying one today. He has never taken additional doses of his medication by accident before, but has been admitted to the hospital when his carbamazepine has gradually build up levels above therapeutic. He reports he took his extra dose of medications at around 3:30 PM, and around 4 to 4:30 PM became lightheaded with numbness and tingling of his lips, stumbling, and blurry vision. He called poison control who recommended he proceed to the emergency department. His who is with him today reports that his cognition is altered, and he is at around 50% of his normal baseline. He has been more forgetful prior to this. He denies anxiety/depression at time of visit, and denies SI or suicidal intent in taking additional medication. He endorses 15 minutes of chest pain in the center of his chest which did not radiate to his neck or shoulder, and was not associated with diaphoresis or shortness of breath during the episode. He reports he has had similar episodes of chest pain without diaphoresis or shortness of breath when walking back from the bathroom over the previous couple of months. They voiced resolved in about 15 minutes. He has no chest pain at time of visit. At time of visit he reports he feels better, but his head is still heavy, he still feels lightheaded, and his balance still feels off. He denies dry mouth, flushing, warmth, diaphoresis. Denies abdominal pain, nausea, vomiting, diarrhe a, constipation and is eating dinner comfortably in bed at time of visit. He does not have a personal or family history of seizure. Family history: Reviewed. No history of seizure. Surgical history: Reviewed Social history: Denies tobacco use current and former. Endorses rare alcohol use, less than 1 a week one light beer in a sitting. Denies recreational drug use. He lives in [place] with his . Allergies Allergy/AdvReac Type Severity Reaction Status Date / Time doxycycline AdvReac Unknown Verified 09/22/19 20:47 Home Medications Home Medications Medication Instructions Recorded Confirmed Type atorvastatin 40 mg PO QPM 09/14/18 09/22/19 History buspirone 30 mg PO BID 09/14/18 09/22/19 History carbamazepine 300 mg PO QAM 09/14/18 09/22/19 History gabapentin 1,600 mg PO BID 09/14/18 09/22/19 History melatonin 5 mg PO HS PRN 09/14/18 09/22/19 History mirtazapine 45 mg PO HS 09/14/18 09/22/19 History carbamazepine 400 mg PO BID 01/09/19 09/22/19 History gabapentin 1,200 mg PO QAM 01/09/19 09/22/19 History clonazepam 0.5 mg PO HS 09/22/19 09/22/19 History lisinopril 10 mg tablet 10 mg PO QAM #90 tab 09/22/19 09/22/19 Rx metoprolol succinate 50 mg PO DAILY 09/22/19 09/22/19 History Past Med/Surg History Medical History Anxiety Arrhythmia PCP LIZZY-CAMILA ALICEA Cancer PROSTATE CANCER Colitis Depression Hyperlipidemia Hypertension Insomnia Kidney stones Migraine Osteoarthritis Restless leg syndrome Trigeminal neuralgia Surgical History History of cystoscopy KIDNEY STONE REMOVAL History of herniorrhaphy X 2 History of surgery LEFT HEEL SURGERY (HARDWARE) History of tooth extraction Hx of prostatectomy Family History Mother Breast cancer Aunt Breast cancer Social History Preferred Language: Haitian Communication Ability: Effective 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 Beliefs That Will Affect Care: None Current Living Situation: Family current occupational status: employed current occupation: [employer] Other Information That Helps Us Care for You: No Feels Safe at Home: Yes Safety Concerns: Feels Safe At This Time Smoking Status: Never smoker Do You Dip or Chew Tobacco: No ; Second Hand Exposure: No ; Tobacco Cessation Education Requested by Patient: No Hx Alcohol Use: Yes Alcohol type: beer Hx Substance Use: No Review of Systems Review of Systems: All systems reviewed & are unremarkable except as noted in HPI & below Physical Exam Physical Exam: General: A&Ox3. NAD. Cooperative. Thought process linear, goal-directed. Speech fluent with normal prosody. Skin warm and dry. HEENT: Atraumatic, normocephalic. External ear anatomy normal. External nasal anatomy normal. Extraocular movements intact without nystagmus. Pupils equal and reactive to light and accommodation. Patient endorses mild blurry vision during exam. No facial asymmetry. No nasolabial fold flattening or increased tone. Facial strength and sensation intact in all distributions. Tongue protrudes midline. Mucous membranes moist. No anterior or posterior cervical adenopathy. No clavicular adenopathy. Neck supple. Pulm: CTAB A&P. -wheezes, -rales, -rhonchi. Symmetrical chest rise. No increase work of breathing. No respiratory distress. Cardiac: RRR, -mrg. Radial pulses intact and symmetrical. Abdominal: Nontender, nondistended, soft. BS present. Extremities: Warm, dry. Moving all extremities equally. PT pulses intact bilaterally. 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 Sensation to soft touch intact in distal extremities without deficit. Results & Data Vital Signs (Past 12 Hours) Vital Signs Temp Pulse Pulse Resp BP BP Pulse Ox 09/22/19 20:01 62 18 148/98 H 96 09/22/19 19:10 96 09/22/19 19:03 36.7 C 70 20 160/97 H 93 Supervising Physician Co-Signing Physician Notes Patient seen and examined, chart reviewed, case discussed with Dr. Cee and I agree with his assessment and plan as documented above. Briefly, patient is a 59-year-old male with long-standing history of severe trigeminal neuralgia. He currently follows with neurology and is taking gabapentin and carbamazepine presenting with suspected unintentional Tegretol overdose. Patient took an extra dose of medications this afternoon. On exam he is afebrile, mildly hypertensive otherwise hemodynamically stable. Skinwarm/dry/intact, no rashes or lesions HEENTnormocephalic atraumatic, pupils equal and reactive, extraocular muscles intact with no nystagmus, moist mucous membranes HeartS1-S2 present, regular, no murmurs rubs or gallops Lungsequal air entry bilaterally no rales/rhonchi/wheezes Abdomenbowel sounds present normoactive, abdomen soft, nontender, nondistended Extremitieswarm Labs and images reviewed. Patient with mild hyponatremia with sodium = 130, chloride = 96. Carbamazepine level equals 21.1 mcg/mL (normal range 4-12) Assessment/planCase discussed between ER attending and poison control Observation to medical floor with telemetry Ativan as needed, seizure precautions per protocol We will hold Tegretol and gabapentin for now Check carbamazepine level in a.m. Patient may benefit from decreased dosage as he has had prior episodes of elevated carbamazepine levels in the past. He states that his symptoms abruptly return after any decreased dosing. He follows with neurology. He has looked into surgery in the past. Has also considered acupuncture as well. Mention possibility of nerve block, he may look more into this in the future -Remainder of plan as above Resident Activity Tracking Resident Involvement: Resident Care Provided Care Provided: Adult Hospital Medicine (1) Accidental overdose Encounter type: initial encounter Qualified Code(s): T50.901A - Poisoning by unspecified drugs, medicaments and biological substances, accidental (unintentional), initial encounter (2) Carbamazepine toxicity Encounter type: initial encounter Injury intent: accidental or unintentional Qualified Code(s): T42.1X1A - Poisoning by iminostilbenes, accidental (unintentional), initial encounter
[2019-09-22] MEDS ORDERED: ACETAMINOPHEN 325 MG TAB PO PRN (21:53)
[2019-09-22] MEDS ORDERED: NON-FORMULARY MEDICATION (Melatonin 5 MG) PO PRN (21:53)
[2019-09-22] MEDS ORDERED: POLYETHYLENE (MIRALAX) 17 GM PACK PO PRN (21:53)
[2019-09-22] MEDS ORDERED: ATORVASTATIN 40 MG TAB PO SCH (22:15)
[2019-09-22] MEDS ORDERED: MIRTAZAPINE SOLTAB 15 MG PO SCH (22:15)
--- NOTE | 2019-09-22 22:24 | Emergency Department Note ---
Entered by Mervat Fagan acting as a scribe for Al Murphy MD History of Present Illness General Chief complaint: Overdose (Accidental) Stated complaint: ACCIDENT OVERDOSE, DIZZINESS, STUMBLING Time Seen by Provider: 09/22/19 19:16 Source: patient and family () Limitations: no limitations History of Present Illness Onset (ago): hour(s) (3.5) Location: head Severity: similar to prior episodes Pain Consistency: + constant Quality: + other (dizziness) Associated symptoms: + denies other symptoms (difficulty swallowing, SOB, diaphoresis, nausea, new diarrhea, numbness in his extremities, and hematochezia), + confusion, + chest pain and + other (lightheadedness) The patient is a 59 year old male who presents to the Emergency Room with complaints of constant dizziness that began around 16:00 this afternoon, about 3.5 hours ago. He states that he think he accidentally took a dose of carbamazepine at 13:30 today and another one at 15:30 today, doubling his prescribed daily dose. The patient reports this symptoms feel similar to his last accidental overdose. He describes the dizziness as "feeling lightheaded, but the room wasn't spinning." The patient also states that his "head feels heavy," noting that it feels similar to a headache. Per the patient's , at bedside, the patient has been stumbling and confused. He complains of numbness in his lips. The patient notes that he has chest pain infrequently, noting that he had a 30 minute episode around 16:00 today, which was not modified by anything. He denies any difficulty swallowing, SOB, diaphoresis, nausea, new diarrhea, numbness in his extremities, and hematochezia. The patient denies the use of any blood thinners. Home Medications Home Medications Medication Instructions Recorded Confirmed Type atorvastatin 40 mg PO QPM 09/14/18 09/22/19 History buspirone 30 mg PO BID 09/14/18 09/22/19 History carbamazepine 300 mg PO QAM 09/14/18 09/22/19 History gabapentin 1,600 mg PO BID 09/14/18 09/22/19 History melatonin 5 mg PO HS PRN 09/14/18 09/22/19 History mirtazapine 45 mg PO HS 09/14/18 09/22/19 History carbamazepine 400 mg PO BID 01/09/19 09/22/19 History gabapentin 1,200 mg PO QAM 01/09/19 09/22/19 History clonazepam 0.5 mg PO HS 09/22/19 09/22/19 History lisinopril 10 mg tablet 10 mg PO QAM #90 tab 09/22/19 09/22/19 Rx metoprolol succinate 50 mg PO DAILY 09/22/19 09/22/19 History Allergies Allergy/AdvReac Type Severity Reaction Status Date / Time doxycycline AdvReac Unknown Verified 09/22/19 20:47 Past Med/Surg History Medical History Anxiety Arrhythmia PCP AWARE-CAMILA TOLENTINOURER Cancer PROSTATE CANCER Colitis Depression Hyperlipidemia Hypertension Insomnia Kidney stones Migraine Osteoarthritis Restless leg syndrome Trigeminal neuralgia Surgical History History of cystoscopy KIDNEY STONE REMOVAL History of herniorrhaphy X 2 History of surgery LEFT HEEL SURGERY (HARDWARE) History of tooth extraction Hx of prostatectomy Family History Mother Breast cancer Aunt Breast cancer Social History Preferred Language: Kuwaiti Communication Ability: Effective 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 and A total of 10 systems reviewed and were otherwise negative Physical Exam Vital Signs Vital Signs - 24 hr 09/22/19 19:03 09/22/19 19:10 09/22/19 19:25 Temperature 36.7 C Temperature Source Oral Pulse Rate - Lying 67 Pulse Rate - Sitting 67 Pulse Rate - Standing 70 Pulse Rate 70 Pulse Rate [Finger] Pulse Rhythm Regular Pulse Strength Normal Respiratory Rate 20 Respiratory Effort / Characteristics Non-Labored Respiratory Depth Normal Respiratory Pattern Regular Blood Pressure - Lying 146/97 H Blood Pressure - Sitting 164/103 H Blood Pressure- Standing 170/114 H Blood Pressure 160/97 H Blood Pressure [Right Arm] Blood Pressure Mean 118 Blood Pressure Mean [Right Arm] Blood Pressure Position Sitting Pulse Oximetry 93 96 Oxygen Delivery Method Room Air Room Air Sepsis Recent Fever Within 48 Hours No Sepsis Action Taken by Nursing No Action Required 09/22/19 20:01 Temperature Temperature Source Pulse Rate - Lying Pulse Rate - Sitting Pulse Rate - Standing Pulse Rate Pulse Rate [Finger] 62 Pulse Rhythm Pulse Strength Respiratory Rate 18 Respiratory Effort / Characteristics Respiratory Depth Respiratory Pattern Blood Pressure - Lying Blood Pressure - Sitting Blood Pressure- Standing Blood Pressure Blood Pressure [Right Arm] 148/98 H Blood Pressure Mean Blood Pressure Mean [Right Arm] 114 Blood Pressure Position Pulse Oximetry 96 Oxygen Delivery Method Room Air Sepsis Recent Fever Within 48 Hours Sepsis Action Taken by Nursing Constitutional: Vital signs reviewed. Eyes: Pupils are equal round reactive to light. Conjunctiva are noninjected. ENT: Pharynx is clear without erythema or exudate. Mucous membranes are moist. Neck supple without meningeal signs. Respiratory: Clear to auscultation bilaterally. Breath sounds are equal bilaterally. Cardiovascular: Regular rate and rhythm. No rubs or gallops. GI: Soft, nondistended and nontender. Bowel sounds are present. Musculoskeletal: No peripheral edema. No lower extremity tenderness. Integumentary: No cyanosis. Neurological: The patient is awake and alert. Cranial nerves II-XII are intact. Motor is 5 out of 5 all extremities. Sensation is intact to light touch all extremities. Normal speech. No pronator drift. No limb ataxia. Psychiatric: Normal affect. Course Course 1916: The patient was evaluated in room C04. A complete history and physical exam was performed. 2019: I spoke with Poison Control, and they recommended hospitalization overnight if the patient stays symptomatic. 2221: I spoke with Dr. Lian Tapia, [facility] hospitalist, about the patients case. She will further evaluate the patient. Administered Medications Medical Decision Making Differential Diagnosis The differential diagnosis includes: Accidental overdose, dehydration, electrolyte abnormality, metabolic derangement, and cardiac Medical Records Attestation: I reviewed the patient's medical records. I did perform a limited focused review of portions of the patient's old chart on the electronic medical record. The patient was seen by his PCP on 08/24 for a URI. Home Medications Current Medication List: was personally reviewed by me Laboratory Data Attestation: I reviewed the patient's lab results. Result diagrams: 09/22/19 19:13 09/22/19 19:13 Lab Results 09/22/19 09/22/19 09/22/19 Range/Units 19:13 19:13 19:13 WBC 6.85 (4.8-10.8) K/uL RBC 4.47 L (4.7-6.1) M/uL Hgb 14.1 (14.0-18.0) g/dL Hct 39.4 L (42-52) % MCV 88.1 (80-100) fL MCH 31.5 (25-34) pg MCHC 35.8 (32-36) g/dL RDW Std Deviation 39.9 (36.4-46.3) fL RDW Coeff of Nikita 12.4 (11.5-14.5) % Plt Count 224 (130-400) K/uL MPV 8.7 (7.4-10.4) fL Immature Gran % (Auto) 0.1 % Neut % (Auto) 50.8 % Lymph % (Auto) 36.6 % Dane % (Auto) 9.9 % Eos % (Auto) 2.2 % Baso % (Auto) 0.4 % Immature Gran # (Auto) 0.01 (0.00-0.02) K/uL Neut # (Auto) 3.47 (1.4-6.5) K/uL Lymph # (Auto) 2.51 (1.2-3.4) K/uL Dane # (Auto) 0.68 H (0.11-0.59) K/uL Eos # (Auto) 0.15 (0-0.5) K/uL Baso # (Auto) 0.03 (0-0.2) K/uL Sodium 130 L (136-145) mmol/L Potassium 4.0 (3.5-5.1) mmol/L Chloride 96 L (98-107) mmol/L Carbon Dioxide 28 (21-32) mmol/L Anion Gap 6.0 (3-11) BUN 8 (7-18) mg/dl Creatinine 0.74 (0.6-1.4) mg/dl Est Cr Clr Drug Dosing 102.7 ml/min Est GFR ( Amer) 116.2 Est GFR (Non-Af Amer) 100.3 BUN/Creatinine Ratio 11.0 (10-20) Glucose 99 (70-99) mg/dl Calcium 8.9 (8.5-10.1) mg/dl Total Bilirubin 0.2 (0.2-1) mg/dl AST 13 L (15-37) U/L ALT 18 (12-78) U/L Alkaline Phosphatase 76 (45-117) U/L Troponin I < 0.015 (0-0.045) ng/ml Total Protein 6.8 (6.4-8.2) gm/dl Albumin 3.8 (3.4-5.0) gm/dl Globulin 3.0 (2.5-4.0) gm/dl Albumin/Globulin Ratio 1.3 (0.9-2) Urine Color Urine Appearance (Clear) Urine pH (4.5-7.5) Ur Specific Mission (1.000-1.030) Urine Protein (Negative) Urine Glucose (UA) (Negative) Urine Ketones (Negative) Urine Blood (Negative) Urine Nitrite (Negative) Urine Bilirubin (Negative) Urine Urobilinogen (Negative) Ur Leukocyte Esterase (Negative) Carbamazepine 21.1 H* (4-12) mcg/ml 09/22/19 Range/Units 20:02 WBC (4.8-10.8) K/uL RBC (4.7-6.1) M/uL Hgb (14.0-18.0) g/dL Hct (42-52) % MCV (80-100) fL MCH (25-34) pg MCHC (32-36) g/dL RDW Std Deviation (36.4-46.3) fL RDW Coeff of Nikita (11.5-14.5) % Plt Count (130-400) K/uL MPV (7.4-10.4) fL Immature Gran % (Auto) % Neut % (Auto) % Lymph % (Auto) % Dane % (Auto) % Eos % (Auto) % Baso % (Auto) % Immature Gran # (Auto) (0.00-0.02) K/uL Neut # (Auto) (1.4-6.5) K/uL Lymph # (Auto) (1.2-3.4) K/uL Dane # (Auto) (0.11-0.59) K/uL Eos # (Auto) (0-0.5) K/uL Baso # (Auto) (0-0.2) K/uL Sodium (136-145) mmol/L Potassium (3.5-5.1) mmol/L Chloride (98-107) mmol/L Carbon Dioxide (21-32) mmol/L Anion Gap (3-11) BUN (7-18) mg/dl Creatinine (0.6-1.4) mg/dl Est Cr Clr Drug Dosing ml/min Est GFR ( Amer) Est GFR (Non-Af Amer) BUN/Creatinine Ratio (10-20) Glucose (70-99) mg/dl Calcium (8.5-10.1) mg/dl Total Bilirubin (0.2-1) mg/dl AST (15-37) U/L ALT (12-78) U/L Alkaline Phosphatase (45-117) U/L Troponin I (0-0.045) ng/ml Total Protein (6.4-8.2) gm/dl Albumin (3.4-5.0) gm/dl Globulin (2.5-4.0) gm/dl Albumin/Globulin Ratio (0.9-2) Urine Color Yellow Urine Appearance Clear (Clear) Urine pH 7.5 (4.5-7.5) Ur Specific Mission 1.016 (1.000-1.030) Urine Protein Negative (Negative) Urine Glucose (UA) Negative (Negative) Urine Ketones Negative (Negative) Urine Blood Negative (Negative) Urine Nitrite Negative (Negative) Urine Bilirubin Negative (Negative) Urine Urobilinogen Negative (Negative) Ur Leukocyte Esterase Negative (Negative) Carbamazepine (4-12) mcg/ml Imaging Data Radiologist's Impression: Radiology results as stated below per my review and the radiologist's interpretation: TWO VIEW CHEST CLINICAL HISTORY: Dizziness. FINDINGS: PA and lateral chest radiographs are compared to study dated 01/09/2019. The cardiomediastinal silhouette is unremarkable. The lungs and pleural spaces are clear. There is no pneumothorax. The bony thorax appears intact. IMPRESSION: No active disease in the chest. Electronically signed by: Virgil Garza M.D. 09/22/2019 8:[address] SCAN OF THE BRAIN WITHOUT IV CONTRAST CLINICAL HISTORY: Dizziness. COMPARISON STUDY: CT of the brain dated 01/09/2019. TECHNIQUE: Unenhanced axial CT scan of the brain is performed from the vertex to the skull base. A dose lowering technique was utilized adhering to the principles of ALARA. CT DOSE: 537.48 mGy.cm FINDINGS: Brain parenchyma: The brain parenchyma is normal in appearance. There is no hemorrhage, mass effect, or evidence of acute territorial ischemia by CT criteria. Bowman-white matter differentiation is preserved. No extra-axial fluid collection is seen. Ventricles, sulci, cisterns: Normal in configuration. Intracranial vasculature: The visualized intracranial vasculature at the skull base is normal in appearance. Calvarium: Unremarkable. Sinuses and mastoids: The visualized paranasal sinuses are clear. The mastoid air cells are well pneumatized. Orbits: The bony orbits are grossly intact. IMPRESSION: There is no hemorrhage, mass effect, or evidence of acute territorial ischemia by CT criteria. Electronically signed by: Virgil Garza M.D. 09/22/2019 7:57 PM ECG Data Attestation: I personally reviewed and interpreted this ECG as follows: Indication: + chest pain Rate (beats per minute): 66 Rhythm: + normal sinus ECG ST segments: no ST elevation ECG Findings: + Other (QRS is 82 ms); no PVCs Blood Pressure Blood Pressure Findings: Elevated blood pressure Blood Pressure Disposition: Referred to patients primary care provider [facility] Narrative I did evaluate the patient as noted above. Patient is presenting with lightheadedness. He believes he accidentally took an extra dose of gabapentin and carbamazepine. He states he had similar symptoms when his carbamazepine level was too high in the past. IV access was established. The patient was placed on a continuous titrator. Cardiac monitoring: Indication: Dizziness Rate and rhythm: Sinus rhythm at a rate of 66. No ectopy. I did order and personally review the patient's 12-lead EKG as described above. He has no acute ischemia on twelve-lead EKG. I did order and personally reviewed the images of the patient's chest x-ray as described above. There is no evidence of pneumonia. I did order a urine analysis. He does not have a UTI. I did order and review the patient's blood work as noted in the electronic medical record. He has mild hyponatremia. CBC is unremarkable. Carbamazepine level is 21.1. I did order a CT of the head. I did review the images myself as well as the radiology report as described above. There is no evidence of bleed or infarct. I did discuss the case with poison control. They did recommend that should he remain symptomatic he should be hospitalized overnight and have his level rechecked tomorrow. I did reassess the patient. He states that he is still lightheaded and when he tries to get up he has difficulty walking. I did discuss the test results and recommended hospitalization. I did discuss case with the hospitalist and assistant case manager. Impression & Plan Carbamazepine toxicity, Accidental overdose, Acute chest pain, Acute hyponatremia Discharge Plan Visit Data *Final* Discharge Date/Time: 09/22/19 21:45 Chief Complaint: Overdose (Accidental) Stated Complaint: ACCIDENT OVERDOSE, DIZZINESS, STUMBLING ED Provider: Al Murphy Discharge Problem: Carbamazepine toxicity, Accidental overdose, Acute chest pain, Acute hyponatremia Patient Disposition: Admitted As Inpatient Discharge Instructions Interventions: ED Discharge Assessment Last Done: 09/22/19 21:45 Discharge Problem: Carbamazepine toxicity Qualifiers: Encounter type: initial encounter Injury intent: accidental or unintentional Qualified Code(s): T42.1X1A - Poisoning by iminostilbenes, accidental (unintentional), initial encounter Accidental overdose Qualifiers: Encounter type: initial encounter Qualified Code(s): T50.901A - Poisoning by unspecified drugs, medicaments and biological substances, accidental (unintentional), initial encounter The scribe's documentation has been prepared under my direction and personally reviewed by me in its entirety. I confirm that the note above accurately reflects all work, treatment, procedures, and medical decision making performed by me.
--- NOTE | 2019-09-22 22:32 | Billing Data ---
Coding Level of Care Code 21255 OBS Care - Level 3
[2019-09-22] MEDS: BusPIRone 15 MG TAB PO SCH (22:36)
[2019-09-23] MEDS: BusPIRone 15 MG TAB PO SCH (08:16)
[2019-09-23] MEDS ORDERED: GABAPENTIN 600 MG TAB PO SCH (09:00)
[2019-09-23] MEDS ORDERED: LISINOPRIL 10 MG TAB PO SCH (09:00)
[2019-09-23] MEDS ORDERED: METOPROLOL SUCC 50MG EXT REL TAB PO SCH (09:00)
[2019-09-23] MEDS ORDERED: GABAPENTIN 800 MG TAB PO SCH (15:00)
[2019-09-23] MEDS ORDERED: CARBAMAZEPINE 100 MG CHEW TAB PO ONE (15:30)
--- NOTE | 2019-09-23 15:35 | Discharge Summary ---
Date of Service September 23, 2019 Admission HPI Per Admitting Provider Mr Parikh is a 59-year-old male with a past medical history of trigeminal neuralgia, hypertension, irritable bowel syndrome, depression with anxiety, and hyperlipidemia who presented to the emergency department on the recommendation of poison control after he accidentally took an extra dose of his carbamazepine and gabapentin. Patient reports that he took an extra dose of his medications because he could not remember if he took his early afternoon dose. He does not use a pillbox, his reports that they are buying one today. He has never taken additional doses of his medication by accident before, but has been admitted to the hospital when his carbamazepine has gradually build up levels above therapeutic. He reports he took his extra dose of medications at around 3:30 PM, and around 4 to 4:30 PM became lightheaded with numbness and tingling of his lips, stumbling, and blurry vision. He called poison control who recommended he proceed to the emergency department. His who is with him today reports that his cognition is altered, and he is at around 50% of his normal baseline. He has been more forgetful prior to this. He denies anxiety/depression at time of visit, and denies SI or suicidal intent in taking additional medication. He endorses 15 minutes of chest pain in the center of his chest which did not radiate to his neck or shoulder, and was not associated with diaphoresis or shortness of breath during the episode. He reports he has had similar episodes of chest pain without diaphoresis or shortness of breath when walking back from the bathroom over the previous couple of months. They voiced resolved in about 15 minutes. He has no chest pain at time of visit. At time of visit he reports he feels better, but his head is still heavy, he still feels lightheaded, and his balance still feels off. He denies dry mouth, flushing, warmth, diaphoresis. Denies abdominal pain, nausea, vomiting, diarrhea, constipation and is eating dinner comfortably in bed at time of visit. He does not have a personal or family history of seizure. Principal Diagnosis Accidental overdose of tegretol Discharge Exam Constitutional well developed and well nourished ENMT external ear and nose normal, oropharynx normal Respiratory normal respiratory effort, lungs clear to auscultation Cardiovascular RRR, no murmur, no edema Heart Sounds: normal S1 and normal S2 Vessels: posterior tibial pulses present and dorsalis pedis pulses present Gastrointestinal (Abdomen) normal bowel sounds, soft, nontender, no hepatosplenomegaly Neurologic moves all extremities Gait: no ataxic gait Psychiatric A+Ox3, euthymic affect Discharge Data Allergies Allergy/AdvReac Type Severity Reaction Status Date / Time doxycycline AdvReac Unknown Verified 09/22/19 20:47 Consultations 09/22/19 20:27 ED Decision to Admit Stat Ordered Studies CT head - no acute pathology Hospital Course (1) Carbamazepine toxicity: Presenting symptoms were attributed to carbamazepine toxicity as his carbamazepine level was 21 at admission. His carbamazepine was held and he was given supportive care. All symptoms including lightheadedness, paresthesias, decreased balance, and blurry vision resolved prior to discharge. Repeat tegretol level on hospital day #2 was 13. After phone discussion with [facility] it was recommended that his tegretol dosing be changed to 300mg three times a day. He will need follow-up with [facility] within a week of discharge. At that time a repeat tegretol level will be needed. His trigeminal neuralgia control on the lower dose of tegretol will also need to be checked at that time. The patient was seen by PT on day of discharge and cleared for home from a therapy standpoint. (2) Accidental overdose: Of tegretol and gabapentin. He experienced symptoms of tegretol toxicity from such. Tegretol dose was lowered at time of discharge. His gabapentin dosing was left unchanged. (3) Cervicalgia: (4) Chest pain: The patient was advised to discuss with his PCP the need for outpatient stress test in light of his recent chest pain episodes. EKG during this admission was normal. Troponin was negative. (5) Chronic diarrhea of unknown origin: Has seen GI in the past for this. (6) Incomplete emptying of bladder: (7) Depression with anxiety: (8) Hyponatremia: Suspect due to mild SIADH. If SIADH is present it is likely from his tegretol. He was advised to follow fluid-restriction at home of about 1500cc/day. Repeat BMP at time of hospital follow-up advised to ensure stability. Total Time Total Time Spent Total Time Spent (In Minutes): 40 Discharge Plan Discharge Items Patient Disposition: Home - Self-Care Reason For Visit: ACCIDENTAL CARBAMAZEPINE OVERDOSE Discharge Diagnosis: Accidental overdose of carbamazepine leading to blurry vision, balance problems, etc -- resolved Activity: Resume your previous activity Non-emergency contact: Primary Care Provider and Neurologist Call non-emergency contact if: you have any medication questions, your symptoms worsen and you have a fever Follow-up/Referrals: Moraima Duarte CRNP [Primary Care Provider] - (see Ms Duarte within 1 week ) Shelley Kramer MD [Physician] - (please call Dr Mcclure's office on Wednesday, 09/25 to schedule follow-up for this week, if possible ) Diet: Regular Addtl Attending Provider Instructions: You were seen for a variety of symptoms including blurry vision, balance troubles, lightheadedness, etc. These symptoms were thought to be due to too much carbamazepine in your system as your carbamazepine level was 19 upon admission (normal range is 4-12). With holding the carbamazepine and over time the level fell to 13 and your symptoms resolved. You were seen by physical therapy and did very well with your walking. I spoke with your primary [facility]ist and we both agreed that in light of your history of moderately elevated carbamazepine levels it would be best to make an adjustment to your medication. At this time we are recommending that you LOWER your carbamazepine to 300mg three times a day (your previous dosing schedule was 300mg in the morning, 400mg in the afternoon, and 400mg at bedtime). Dr Kramer has asked that you call her office first thing on Wednesday morning, 09/25/19, to schedule a follow-up appointment and to ensure that your trigeminal neuralgia symptoms are still controlled in the face of adjusting the medic ation. Additional recommendations - 1. you had mentioned to us that you have had chest pain episodes in the recent past. Please schedule a follow-up appointment with Ms Mcfadden to discuss larryin dat a "stress test." 2. your sodium level in the blood is mildly low. It appears it has been mildly low for some time. The level may be low due to your carbamazepine. The treatment for the low sodium level is to restrict your total fluid intake each day at home to about 1500-1800cc/day. Please have Lesa repeat your sodium level at the time of your hospital follow-up appointment, preferably this week. Follow-up -- see separate section Return to [facility] if -- * you have severe facial pain * you have a return of the dizziness, balance problems, blurry vision or any other neurological symptom * you have fever over 100.5 degrees * you have chest pain or breathing difficulties * any other concerns Pending Studies at Discharge: No Stand-Alone Forms: My [facility], Smoking Cessation Medications and DC Order Prescriptions: Continued lisinopril 10 mg tablet 10 mg PO QAM Qty: 90 RF: 0 atorvastatin 40 mg Tablet 40 mg PO QPM RF: 0 gabapentin 800 mg Tablet 1,600 mg PO BID RF: 0 buspirone 30 mg Tablet 30 mg PO BID RF: 0 mirtazapine 45 mg Tablet 45 mg PO HS RF: 0 melatonin 5 mg Tablet 5 mg PO HS PRN (Reason: Sleep) RF: 0 gabapentin 800 mg Tablet 1,200 mg PO QAM RF: 0 clonazepam 0.5 mg tablet 0.5 mg PO HS RF: 0 metoprolol succinate 50 mg Tablet Extended Release 24 Hr 50 mg PO DAILY RF: 0 Changed carbamazepine 200 mg Tablet 300 mg PO TID Qty: 90 RF: 0 Discontinued carbamazepine 200 mg Tablet 400 mg PO BID RF: 0 Discharge Orders: Discharge Order (Routine); Ordered 09/23/19 Ordered By: Moncho Wood/Other Patient Handouts: Carbamazepine Oral tablet Admission Data Admit Date/Time: 09/22/19 21:25 Attending Provider: Moncho Duran Admit Provider: Cody Cee Primary Care Provider: Moraima Duarte. Other Providers: Serena Tapia Other Interventions: Discharge Summary Assessment (RN) Last Done: 09/23/19 16:11 DC Date/Time DO NOT enter until pt leaves facility: 09/23/19 16:38
== END 2019-09-23 16:38 | disposition home or self-care (01) ==
LOC: ED 19:01 → 2E 19:01 → SUATTDRO 21:25 → 2E 21:45